=== PATIENT | female | born 1970 | race Caucasian/White ===

== ENCOUNTER 2024-11-13 14:03 | Outpatient (CLI) | payer OTHER ==
--- NOTE | 2024-11-13 15:42 | RADIOLOGY REPORT ---
EXAM: MR MRI UPPER EXTREMITY RIGHT INDICATION: PAIN IN SHOULDER TECHNIQUE: Multiplanar, multisequence MR images of the right shoulder were obtained in the absence of gadolinium contrast material. COMPARISON: None FINDINGS: [CORACOACROMIAL ARCH]: Mild degenerative change of the acromioclavicular joint. Intact coracoclavicular ligaments. Intact coracoacromial ligaments. Mild amount of subacromial/subdeltoid bursal distention. [ROTATOR CUFF]: Mild tendinosis of the superior rotator cuff. [BICEPS TENDON]: Intact without tenosynovitis. [LABRUM]: Intact. [CARTILAGE]: No measurable cartilage defect. [GLENOHUMERAL JOINT]: No joint effusion. No intra-articular body. Thickening of the axillary pouch, which may be seen in the setting of adhesive capsulitis. [BONES]: No acute fracture, osseous contusion, or aggressive focal osseous lesion. [MUSCLES]: Normal muscle bulk of the rotator cuff muscles. [NEUROVASCULAR/LYMPH NODES]: Normal. [OTHER]: None. IMPRESSION: 1. Thickening of the axillary pouch, which may be seen in the setting of adhesive capsulitis. 2. Mild subacromial/subdeltoid bursitis. 3. Mild tendinosis of the superior rotator cuff.
== END 2024-11-13 23:59 | disposition home or self-care (01) ==
LOC: MRI02 14:03
PROVIDERS: ATTEND Nurse Practitioner Family
DX: M19.011 Primary osteoarthritis, right shoulder (principal); M75.81 Other shoulder lesions, right shoulder; M25.511 Pain in right shoulder
CPT/HCPCS: 73221